=== PATIENT | female | born 1985 | race Two or more races ===

== ENCOUNTER 2021-05-08 20:40 | Emergency (ER) | payer SELFPAY ==
[2021-05-09 01:30] LABS: BASOPHIL 0.1 % (0-2); EOSINOPHIL 0 % (0-5); HCT 38.1 % (37.0-47.0); HGB 12.4 g/dl (12.5-16.0); LYMPHOCYTE 8.1 % (15-48); MCH 27.3 pg (25.0-31.0); MCHC 32.5 g/dL (32.0-36.0); MCV 83.7 fL (78.0-100.0); MONOCYTE 14.5 % (0-12); MPV 9.1 fL (6.0-9.5); NEUTROPHIL 76.2 % (41-80); NRBC 0; PLT 185 K/uL (150-400); RBC 4.55 M/uL (4.20-5.40); WBC 14.4 K/uL (4.0-10.5)
[2021-05-09 01:33] LABS: BILIRUBIN NEGATIVE (NEGATIVE); BLOOD 2+ Ery/uL (NEGATIVE); COLOR YELLOW (YELLOW); GLUCOSE (U) NORMAL (NORMAL); LEUKOCYTES 2+ Leu/uL (NEGATIVE); NITRITE POSITIVE (NEGATIVE); PROTEIN 2+ mg/dL (NEGATIVE); SPECIFIC GRAVITY 1.015 (1.001-1.030)
[2021-05-09 01:34] LABS: CLARITY SLIGHTLY HAZY (CLEAR)
[2021-05-09 01:40] LABS: BACTERIA 4+; URINARY WBC 20-50
[2021-05-09 01:57] LABS: ALBUMIN 3.3 g/dL (3.4-5.0); BILIRUBIN - TOTAL 0.5 mg/dL (0.2-1.0); BUN/CREAT RATIO (CALC) 15.5 RATIO; CREATININE 0.71 mg/dL (0.51-0.95); GLOBULIN (CALCULATION) 4.5 g/dL; PHOSPHORUS 3.1 mg/dL (2.6-4.7); POTASSIUM 4.6 mmol/L (3.5-5.1); TOTAL PROTEIN 7.8 g/dL (6.4-8.2)
[2021-05-09] MEDS ORDERED: ONDANSETRON ODT4 MG PO (03:07)
[2021-05-09] MEDS ORDERED: IBUPROFEN800 MG PO (03:07)
[2021-05-09] MEDS ORDERED: CIPRO500 MG PO (03:07)
== END 2021-05-09 04:04 | disposition home or self-care (01) ==
LOC: FER 20:40
PROVIDERS: Internal Medicine
DX: N12 Tubulo-interstitial nephritis, not specified as acute or chronic (principal)
CPT/HCPCS: 36415; 80053; 81001; 84100; 85025; J0696; J2270; J2405; J7030